=== PATIENT | male | born 1990 ===

== ENCOUNTER 2018-10-26 08:20 | Emergency (ER) | payer SELFPAY ==
[2018-10-26 08:25] VITALS: BP 116/70; PULSE 82; RESP 18; TEMP 99.2; O2SAT 100
--- NOTE | 2018-10-26 08:50 | C.PDOC ---
History Of Present Illness 28 y/o male presents to the ED complaining of a sore throat for the past 3 days. No fever or chills. He denies taking any OTC medication for symptoms. Otherwise patient denies any congestion, headaches, SOB, chest pain, nausea, vomiting, diarrhea, or other associated complaints. Time Seen by Provider: 10/26/18 08:21 Chief Complaint (Nursing): ENT Problem History Per: Patient History/Exam Limitations: None Onset/Duration Of Symptoms: Days (x 3) Current Symptoms Are (Timing): Still Present Quality (Mouth/Throat): Redness Symptoms Have Been: Continuous Past Medical History Reviewed: Historical Data, Nursing Documentation, Vital Signs Vital Signs: Last Vital Signs Temp 99.2 F 10/26/18 08:22 Pulse 82 10/26/18 08:22 Resp 18 10/26/18 08:22 BP 116/70 10/26/18 08:22 Pulse Ox 100 10/26/18 08:22 - Medical History PMH: No Chronic Diseases Surgical History: No Surg Hx Family History: States: No Known Family Hx - Social History Hx Alcohol Use: Yes Hx Substance Use: Yes (marijuana) - Immunization History Hx Tetanus Toxoid Vaccination: No Hx Influenza Vaccination: No Hx Pneumococcal Vaccination: No Review Of Systems Except As Marked, All Systems Reviewed And Found Negative. Constitutional: Negative for: Fever, Chills ENT: Positive for: Throat Pain. Negative for: Ear Pain, Ear Discharge, Nose Congestion Cardiovascular: Negative for: Chest Pain Respiratory: Negative for: Cough, Shortness of Breath Gastrointestinal: Negative for: Nausea, Vomiting, Diarrhea Neurological: Negative for: Headache, Dizziness Physical Exam - Physical Exam Appears: Non-toxic, No Acute Distress Skin: Warm, Dry, No Rash Head: Atraumatic, Normacephalic Eye(s): bilateral: Normal Inspection, PERRL, EOMI Ear(s): Bilateral: Normal Oral Mucosa: Moist Teeth: Normal Dentition Throat: Erythema (+moderate pharyngeal erythema), No Exudate Neck: Normal ROM, Supple Chest: Symmetrical Respiratory: No Accessory Muscle Use, Other (Speaking in full sentences, No acute distress) Pulses: Left Radial: Normal, Right Radial: Normal Neurological/Psych: Oriented x3, Normal Speech ED Course And Treatment O2 Sat by Pulse Oximetry: 100 (on RA) Pulse Ox Interpretation: Normal Progress Note: Patient counseled regarding diagnosis of pharyngitis, will treat with initial dose of Amoxicillin in the ED. Patient reports he cannot swallow pills due to phobia. Given rx for Amoxicillin liquid to go home with. Disposition - Disposition Referrals: [facility] at [facility] [Outside] Disposition: HOME/ ROUTINE Disposition Time: 08:44 Condition: STABLE Additional Instructions: Follow up in Clinic within 1-2 days. Return to ED if feel worse. 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 - Scribe Statement The provider has reviewed the documentation as recorded by the Scribjordi Salmon All medical record entries made by the Jessicaibjordi were at my direction and personally dictated by me. I have reviewed the chart and agree that the record accurately reflects my personal performance of the history, physical exam, medical decision making, and the department course for this patient. I have also personally directed, reviewed, and agree with the discharge instructions and disposition.
== END 2018-10-26 09:15 | disposition home or self-care (01) ==
LOC: C.ER 08:20
DX: J02.9 Acute pharyngitis, unspecified (principal)